=== PATIENT | male | born 1980 | race Caucasian/White ===

== ENCOUNTER 2019-12-26 18:35 | Observation (INO) ==
[2019-12-26] MEDS ORDERED: SODIUM CHLORIDE 0.9% 1000ML 1,000 ML IV SCH ×2 (19:00→22:21)
--- NOTE | 2019-12-26 19:04 | Emergency Department Note ---
History of Present Illness General Chief complaint: Chest Pain Stated complaint: CHEST PAIN Time Seen by Provider: 12/26/19 18:48 History of Present Illness This is a 39-year-old male presenting to the emergency department for evaluation of substernal chest pain for the past 1 to 2 hours. The patient is currently incarcerated and was in his cell when he began having chest pain. He was seated in his bunk, stood up, and felt lightheaded. The patient recalls waking up on the ground and believe that he struck his head. There is no blood or bleeding. He was able to sit back in his bunk where his symptoms continued. He contacted staff, who now bring him to the ER for evaluation. The patient is usually h ealthy without chronic medical disease. He does not take anything on a regular basis. He does continue with his discomfort that he rates a dull, heavy, 4/10. There is no strong family history of cardiopulmonary disease. Home Medications Home Medications Medication Instructions Recorded Confirmed Type No Known Home Medications 12/26/19 12/26/19 History Allergies Allergy/AdvReac Type Severity Reaction Status Date / Time No Known Allergies Allergy Unverified 12/26/19 20:37 Past Med/Surg History Medical History History of incarceration Social History Preferred Language: Armenian Communication Ability: Effective Beliefs That Will Affect Care: None Current Living Situation: Other Current Living Situation Comment: penitentiary Other Information That Helps Us Care for You: No Feels Safe at Home: Yes Smoking Status: Former smoker Tobacco Type: e-cigarettes ; Do You Dip or Chew Tobacco: No ; Hx Alcohol Use: No Hx Substance Use: No Review of Systems A total of 10 systems reviewed and were otherwise negative Physical Exam Vital Signs Vital Signs - 24 hr 12/26/19 19:34 12/26/19 19:40 12/26/19 19:50 Pulse Rate 66 67 67 Pulse Rate [Finger] Pulse Rate from SpO2 Sensor Respiratory Rate 12 12 19 Blood Pressure Blood Pressure [Right Arm] Blood Pressure Mean Blood Pressure Mean [Right Arm] Pulse Oximetry Oxygen Delivery Method Room Air Room Air Room Air 12/26/19 20:00 12/26/19 20:10 12/26/19 20:20 Pulse Rate 65 60 63 Pulse Rate [Finger] Pulse Rate from SpO2 Sensor Respiratory Rate 19 12 20 Blood Pressure Blood Pressure [Right Arm] Blood Pressure Mean Blood Pressure Mean [Right Arm] Pulse Oximetry Oxygen Delivery Method Room Air Room Air Room Air 12/26/19 20:30 12/26/19 20:40 12/26/19 20:42 Pulse Rate 67 67 75 Pulse Rate [Finger] Pulse Rate from SpO2 Sensor 70 Respiratory Rate 17 18 17 Blood Pressure 123/78 Blood Pressure [Right Arm] Blood Pressure Mean 83 Blood Pressure Mean [Right Arm] Pulse Oximetry 97 Oxygen Delivery Method Room Air Room Air Room Air 12/26/19 20:43 12/26/19 20:50 Pulse Rate 64 Pulse Rate [Finger] 70 Pulse Rate from SpO2 Sensor 66 Respiratory Rate 16 15 Blood Pressure Blood Pressure [Right Arm] 123/78 Blood Pressure Mean Blood Pressure Mean [Right Arm] 93 Pulse Oximetry 97 97 Oxygen Delivery Method Room Air Room Air VITALS: Vitals are noted on the nurse's note and reviewed by myself. Vital signs stable. GENERAL: Well-developed, well-nourished, white male, who is in no acute distress and resting comfortably. Patient is cooperative with the examination. HEAD: Normocephalic atraumatic. EARS: External ear normal. External auditory canals clear, tympanic membranes pearly tamayo without erythema or effusion bilaterally. EYES: Pupils equal round and reactive to light and accommodation. Conjunctivae without injection, sclerae without icterus. Extraocular movements intact. NOSE: Patent, turbinates without inflammation or discharge. MOUTH: Mucous membranes moist. Tonsils are not enlarged. Pharynx without erythema, blood, or exudate. Uvula midline. Airway patent. NECK: Supple without nuchal rigidity. No lymphadenopathy. No thyromegaly. Cervical spine is nontender. HEART: Regular rate and rhythm without murmurs gallops or rubs. LUNGS: Clear to auscultation bilaterally without wheezes, rales or rhonchi. No retractions or accessory muscle use. ABDOMEN: Positive normal bowel sounds x 4. Soft, nontender, without masses or organomegaly. No guarding or rebound tenderness. MUSCULOSKELETAL: No muscle atrophy, erythema, or edema noted. Full range of motion in all extremities. No tenderness to palpation. Normal gait. Strength 5/5 throughout. NEURO: Patient was alert and oriented to person place and time. CN II through XII grossly intact. No focal neurological deficits. Deep tendon reflexes 2+ throughout. SKIN: The skin was without rashes, erythema, edema, or bruising. Capillary refill less than 2 seconds. Course Administered Medications Acetaminophen (Tylenol) 650 mg PO Q4H PRN PRN Reason: Pain or Fever Stop: 01/25/20 22:20 Last Admin: 12/27/19 11:57 Dose: 650 mg Documented by: [id number] Admin: 12/27/19 03:45 Dose: 650 mg Documented by: [id number] Aspirin (Ecotrin Ectab) 81 mg PO QAM [facility] Stop: 01/26/20 08:59 Last Admin: 12/27/19 08:09 Dose: 81 mg Documented by: [id number] Discontinued Medications Gabapentin (Neurontin) 200 mg PO NOW STA Stop: 12/27/19 03:55 Last Admin: 12/27/19 04:43 Dose: 200 mg Documented by: [id number] Sodium Chloride (Nss 1000ml) 1,000 mls @ 999 mls/hr IV .[id number] [facility] Stop: 12/26/19 20:00 Last Infusion: 12/26/19 20:29 Dose: 0 mls/hr Documented by: [id number] Admin: 12/26/19 19:06 Dose: 999 mls/hr Documented by: [id number] Sodium Chloride (Nss 1000ml) 1,000 mls @ 80 mls/hr IV .[id number] [facility] Stop: 12/27/19 09:00 Last Infusion: 12/27/19 10:14 Dose: 0 mls/hr Documented by: [id number] Admin: 12/26/19 22:49 Dose: 80 mls/hr Documented by: [id number] Nitroglycerin (Nitro-Bid 2%) 1 inch EXT NOW ONE Stop: 12/26/19 20:25 Last Admin: 12/26/19 20:41 Dose: 1 inch Documented by: [id number] Perflutren Lipid Microsphere (Definity) 2 ml IV ONCE ONE Stop: 12/27/19 13:52 Last Admin: 12/27/19 13:52 Dose: 2 ml Documented by: [id number] Medical Decision Making Differential Diagnosis Differential diagnosis includes, but is not limited to: Myocardial infarction, dysrhythmia, pericarditis, pneumothorax, aortic aneurysm/dissection, DVT/PE, anxiety, GERD, PUD, electrolyte imbalance, thyroid disorder, pneumonia, bronchitis, pancreatitis, and others Laboratory Data Result diagrams: 12/27/19 05:59 12/27/19 05:59 Lab Results 12/26/19 12/26/19 12/26/19 Range/Units 18:44 18:44 18:44 WBC 7.17 (4.8-10.8) K/uL RBC 5.10 (4.7-6.1) M/uL Hgb 15.8 (14.0-18.0) g/dL Hct 44.4 (42-52) % MCV 87.1 (80-100) fL MCH 31.0 (25-34) pg MCHC 35.6 (32-36) g/dL RDW Std Deviation 42.4 (36.4-46.3) fL RDW Coeff of Abner 13.4 (11.5-14.5) % Plt Count 198 (130-400) K/uL MPV 11.8 H (7.4-10.4) fL Immature Gran % (Auto) 0.1 % Neut % (Auto) 69.7 % Lymph % (Auto) 20.1 % Erath % (Auto) 8.4 % Eos % (Auto) 1.3 % Baso % (Auto) 0.4 % Immature Gran # (Auto) 0.01 (0.00-0.02) K/uL Neut # (Auto) 5.00 (1.4-6.5) K/uL Lymph # (Auto) 1.44 (1.2-3.4) K/uL Erath # (Auto) 0.60 H (0.11-0.59) K/uL Eos # (Auto) 0.09 (0-0.5) K/uL Baso # (Auto) 0.03 (0-0.2) K/uL PT 10.4 (9.0-12.0) Seconds INR 1.0 (0.9-1.1) APTT 25.7 (21.0-31.0) Seconds PTT Ratio 0.9 D-Dimer < 190 (0-500) ug/L FEU Sodium 141 (136-145) mmol/L Potassium 3.8 (3.5-5.1) mmol/L Chloride 110 H (98-107) mmol/L Carbon Dioxide 24 (21-32) mmol/L Anion Gap 8.0 (3-11) BUN 12 (7-18) mg/dl Creatinine 0.94 (0.6-1.4) mg/dl Est Cr Clr Drug Dosing 129.0 ml/min Est GFR ( Amer) 117.9 Est GFR (Non-Af Amer) 101.7 BUN/Creatinine Ratio 12.2 (10-20) Glucose 119 H (70-99) mg/dl Calcium 9.3 (8.5-10.1) mg/dl Magnesium 1.9 (1.8-2.4) mg/dl Total Bilirubin 0.4 (0.2-1) mg/dl AST 12 L (15-37) U/L ALT 36 (12-78) U/L Alkaline Phosphatase 81 (45-117) U/L Troponin I 0.027 (0-0.045) ng/ml Total Protein 7.2 (6.4-8.2) gm/dl Albumin 3.6 (3.4-5.0) gm/dl Globulin 3.6 (2.5-4.0) gm/dl Albumin/Globulin Ratio 1.0 (0.9-2) Lipase 88 (73-393) U/L TSH 1.070 (0.300-4.500) uIu/ml Lyme Disease IgG Ab (Negative) Lyme Disease IgM Ab (Negative) 12/26/19 Range/Units 18:44 WBC (4.8-10.8) K/uL RBC (4.7-6.1) M/uL Hgb (14.0-18.0) g/dL Hct (42-52) % MCV (80-100) fL MCH (25-34) pg MCHC (32-36) g/dL RDW Std Deviation (36.4-46.3) fL RDW Coeff of Abner (11.5-14.5) % Plt Count (130-400) K/uL MPV (7.4-10.4) fL Immature Gran % (Auto) % Neut % (Auto) % Lymph % (Auto) % Erath % (Auto) % Eos % (Auto) % Baso % (Auto) % Immature Gran # (Auto) (0.00-0.02) K/uL Neut # (Auto) (1.4-6.5) K/uL Lymph # (Auto) (1.2-3.4) K/uL Erath # (Auto) (0.11-0.59) K/uL Eos # (Auto) (0-0.5) K/uL Baso # (Auto) (0-0.2) K/uL PT (9.0-12.0) Seconds INR (0.9-1.1) APTT (21.0-31.0) Seconds PTT Ratio D-Dimer (0-500) ug/L FEU Sodium (136-145) mmol/L Potassium (3.5-5.1) mmol/L Chloride (98-107) mmol/L Carbon Dioxide (21-32) mmol/L Anion Gap (3-11) BUN (7-18) mg/dl Creatinine (0.6-1.4) mg/dl Est Cr Clr Drug Dosing ml/min Est GFR ( Amer) Est GFR (Non-Af Amer) BUN/Creatinine Ratio (10-20) Glucose (70-99) mg/dl Calcium (8.5-10.1) mg/dl Magnesium (1.8-2.4) mg/dl Total Bilirubin (0.2-1) mg/dl AST (15-37) U/L ALT (12-78) U/L Alkaline Phosphatase (45-117) U/L Troponin I (0-0.045) ng/ml Total Protein (6.4-8.2) gm/dl Albumin (3.4-5.0) gm/dl Globulin (2.5-4.0) gm/dl Albumin/Globulin Ratio (0.9-2) Lipase (73-393) U/L TSH (0.300-4.500) uIu/ml Lyme Disease IgG Ab Negative (Negative) Lyme Disease IgM Ab Negative (Negative) Imaging Data Radiologist's Impression: XR chest 2V PA/lateral CLINICAL HISTORY: Chest pain. Syncope. COMPARISON STUDY: No previous studies for comparison. FINDINGS: Lung volumes are normal. Lungs are clear. There is no pneumothorax or pleural effusion. Cardiac size is normal. Mediastinal contours are normal. There is no evidence for pulmonary edema. IMPRESSION: No acute cardiopulmonary findings. CT OF THE HEAD WITHOUT CONTRAST CLINICAL HISTORY: syncope COMPARISON STUDY: No previous studies for comparison. CT DOSE: 638.56 mGycm TECHNIQUE: Helical axial images of the head were obtained without IV contrast. Automated exposure control was utilized for the study. A dose lowering technique was utilized adhering to the principles of ALARA. FINDINGS: No acute intracranial hemorrhage, midline shift or mass effect is present. The ventricular system is unremarkable. The basilar cisterns are patent. No extra-axial collections are present. There are no findings to suggest acute dural sinus thrombosis or acute territorial infarct. No significant calvarial abnormalities are present. Visualized portions of the sinuses and mastoid air cells are clear. IMPRESSION: No acute intracranial findings ECG Data Attestation: I personally reviewed and interpreted this ECG as follows: Indication: chest pain and syncope Additional Comments: EKG #1: Sinus rhythm with occasional Premature ventricular complexes@80 bpm QT Int : 364 ms possible prior posterior MS Abnormal ECG No previous ECGs available EKG#2: Normal sinus rhythm @68 bpm QT Int : 412 ms possible posterior MS Nonspecific ST abnormality Abnormal ECG When compared with ECG of 26-DEC-2019 18:44 Premature ventricular complexes are no longer Present MDM Narrative physical exam and history were performed. Nursing notes, EMR, and Medication List were personally reviewed. Patient appears to have had a syncopal episode prior to arrival. He does have chest pain as well. IV access was established and labs were obtained. EKG was performed and does show sinus rhythm with PVCs, however it may also represent a possible posterior MS. The case was discussed with my attending, Dr. Choe, who remained involved in care and decision-making. The patient has received aspirin prehospital, but was initially hypotensive for EMS and was not given Nitropaste or nitroglycerin. CT scan of the head was performed as well as chest x-ray. He was placed on the teletypesetter monitor. The patient blood work is as above and was reviewed. He does not have a significantly elevated white blood cell count, gross anemia, bandemia, or signif icant electrolyte imbalance. Lipase and transaminases are not diagnostic. TSH shows euthyroid state. Urine is without evidence of infection. Lyme is negative. D-dimer x1 is negative. Troponin x2 are both technically negative, however he does have a detectable troponin of 0.027. I am unable to determine if this is trending upwards or stable for the patient. CT scan of the head and chest x-ray were reviewed by myself and radiology showing no acute process. The patient remained in normal sinus rhythm with occasional PVCs with a rate in the 70s on the teletypesetter monitor. On reevaluation he continues to have chest pain. His vital signs appear normal, and his pressure is roughly 130/80. Because of this Nitropaste was applied, which may have minimally improved his symptoms. Overall the patient does not appear stable for discharge home. He has an atypical EKG with a detectable troponin. Additionally he has a syncopal episode. The case was discussed with the on-call hospitalist team who agreed to evaluate the patient here in the ER. Please see their dictation for further patient course, plan, disposition. The chart was completed utilizing [employer] Speech Voice Recognition Software. Grammatical errors, random word insertions, pronoun errors, and incomplete sentences are an occasional consequence of this system due to software limitations, ambient noise, and hardware issues. Any formal questions or concerns about the content, text, or information contained within the body of this dictation should be directly addressed to the provider for clarification. . Impression & Plan Syncope and collapse, Head injury, Left-sided chest pain Discharge Plan Visit Data *Final* Discharge Date/Time: 12/26/19 21:56 Chief Complaint: Chest Pain Stated Complaint: CHEST PAIN ED Provider: Jackson Choe ED Midlevel Provider: Ash Dee Discharge Problem: Syncope and collapse, Head injury, Left-sided chest pain Patient Disposition: Admitted As Inpatient Discharge Instructions Interventions: ED Discharge Assessment Last Done: 12/26/19 21:56 Discharge Problem: Head injury Qualifiers: Encounter type: initial encounter Qualified Code(s): S09.90XA - Unspecified injury of head, initial encounter
[2019-12-26 19:25] LABS: Basophils # (auto) 0.03 K/uL (0-0.2); Basophils % (auto) 0.4 %; Eosinophils # (auto) 0.09 K/uL (0-0.5); Eosinophils % (auto) 1.3 %; Hematocrit (blood only) 44.4 % (42-52); Hemoglobin 15.8 g/dL (14.0-18.0); Immature Granulocytes # (auto) 0.01 K/uL (0.00-0.02); Immature Granulocytes % (auto) 0.1 %; Lymphocytes # (auto) 1.44 K/uL (1.2-3.4); Lymphocytes % (auto) 20.1 %; Mean Corpuscular Hgb Conc 35.6 g/dL (32-36); Mean Corpuscular Volume 87.1 fL (80-100); Mean Platelet Volume 11.8 fL (7.4-10.4); Monocytes % (auto) 8.4 %; Neutrophils % (auto) 69.7 %; Platelet Count 198 K/uL (130-400); RDW Coefficient of Variation 13.4 % (11.5-14.5); RDW Standard Deviation 42.4 fL (36.4-46.3); White Blood Count 7.17 K/uL (4.8-10.8)
--- NOTE | 2019-12-26 19:26 | CT Scan Report ---
CT OF THE HEAD WITHOUT CONTRAST CLINICAL HISTORY: syncope COMPARISON STUDY: No previous studies for comparison. CT DOSE: 638.56 mGycm TECHNIQUE: Helical axial images of the head were obtained without IV contrast. Automated exposure con trol was utilized for the study. A dose lowering technique was utilized adhering to the principles o f ALARA. FINDINGS: No acute intracranial hemorrhage, midline shift or mass effect is present. The ventricular system is unremarkable. The basilar cisterns are patent. No extra-axial collections are present. Ther e are no findings to suggest acute dural sinus thrombosis or acute territorial infarct. No significan t calvarial abnormalities are present. Visualized portions of the sinuses and mastoid air cells are c lear. IMPRESSION: No acute intracranial findings. ACT 112: Negative or not required by law. Electronically signed by: Domenico Stanley M.D. 12/26/2019 7:25 PM
[2019-12-26 19:35] LABS: Albumin Level 3.6 gm/dl (3.4-5.0); BUN Creatinine Ratio 12.2 (10-20); Calcium 9.3 mg/dl (8.5-10.1); Est GFR (African American) 117.9; Est GFR (Non-African American) 101.7; Magnesium 1.9 mg/dl (1.8-2.4); Potassium 3.8 mmol/L (3.5-5.1)
[2019-12-26 19:37] LABS: D Dimer < 190 ug/L FEU (0-500); Partial Thromboplastin Ratio 0.9; Partial Thromboplastin Time 25.7 Seconds (21.0-31.0); Prothrombin Time 10.4 Seconds (9.0-12.0)
--- NOTE | 2019-12-26 19:44 | XRay Report ---
XR chest 2V PA/lateral CLINICAL HISTORY: Chest pain. Syncope. COMPARISON STUDY: No previous studies for comparison. FINDINGS: Lung volumes are normal. Lungs are clear. There is no pneumothorax or pleural effusion. Car diac size is normal. Mediastinal contours are normal. There is no evidence for pulmonary edema. IMPRESSION: No acute cardiopulmonary findings. ACT 112: Negative or not required by law. Electronically signed by: Domenico Stanley M.D. 12/26/2019 7:43 PM
[2019-12-26 19:46] LABS: Bilirubin,Total 0.4 mg/dl (0.2-1); Globulin 3.6 gm/dl (2.5-4.0); Thyroid Stimulating Hormone 1.07 uIu/ml (0.300-4.500); Total Protein 7.2 gm/dl (6.4-8.2); Troponin I 0.027 ng/ml (0-0.045)
[2019-12-26 20:13] LABS: Lyme Ab IgG w/WB Rflx Negative (Negative); Lyme Ab IgM w/WB Rflx Negative (Negative)
[2019-12-26] MEDS ORDERED: NITROGLYCERIN 2% OINTMENT 30GM TUBE EXT ONE (20:24)
[2019-12-26 21:08] LABS: Appearance Urine Clear (Clear); Bilirubin Urine Negative (Negative); Blood Urine Negative (Negative); Color Urine Yellow; Glucose Urine UA Negative (Negative); Ketones Urine Negative (Negative); Leukocyte Esterase Urine Negative (Negative); Nitrite Urine Negative (Negative); Protein Urine Negative (Negative); Specific Gravity Urine 1.015 (1.000-1.030); Urobilinogen Urine Negative (Negative); pH Urine 5.5 (4.5-7.5)
[2019-12-26] MEDS ORDERED: NITROGLYCERIN SL 0.4 MG/TAB TAB SL PRN (22:21)
--- NOTE | 2019-12-26 22:56 | History and Physical Report ---
DATE OF ADMISSION: 12/26/2019 CHIEF COMPLAINT: Chest pain and syncope. HISTORY OF PRESENT ILLNESS: This is a 39-year-old male with no significant past medical history presents with chest pain and syncope.Around 4-5 p.m., was sitting on his bunk, when he has had a chest pain in the retrosternal region, 8/10 in severity, some pressure like feeling, no radiation, no sweating, no shortness of breath, when he tried to get off the bunk, he passed out for a couple of seconds and after that felt very dizzy. Right now also he has some dizziness when he came to the ER, still has some mild chest discomfort. ER is placing him on nitro paste. His initial EKG, no acute findings. Troponin is 0.027. Hemodynamics are stable. When the EMS came, his blood pressure was on the lower side, but right now his blood pressure is okay. Denies any fever, chills, no cough, no headache, yesterday had some blurred visions,but vision is okay now. No earache, no runny nose, no sore throat. Appetite has been not good for last 2 days. No abdominal pain. Normal bowel and bladder movements. No blood in the stools or black stools. No hematuria or burning micturition, no swelling in the legs, no rash. Otherwise, before this episode he has never had a similar kind of episode in the past and he generally ambulates well without any issues. No family history of heart disease. Stopped smoking last May of 2019 before that smoked 1 pack a day for about 10 years. Denies any alcohol abuse in the past, prior to assisted he used to do pain pills . ALLERGIES: No known drug allergies. PAST MEDICAL HISTORY: As mentioned above. PAST SURGICAL HISTORY: None. MEDICATIONS: None. FAMILY HISTORY: Denies any family history. SOCIAL HISTORY: Smokes 1 pack a day for about 10 years. Not smoking since last May of 2019. Denies any alcohol use. He used to do pain meds before he was in assisted. REVIEW OF SYMPTOMS: As per HPI. Rest of review of symptoms negative. PHYSICAL EXAMINATION: GENERAL: The patient is of moderate build, not in acute distress. VITAL SIGNS: Temperature 36.9, pulse 70, respiratory rate 16, blood pressure 123/78, oxygen 97% room air. HEENT: No pallor, no icterus. Pupils equal, round, reactive to light. NECK: No JVD, no neck mass, no carotid bruit. CARDIOVASCULAR: S1, S2 heard, regular rate and rhythm, no murmur, no gallop. RESPIRATORY SYSTEM: Normal AP diameter. No accessory muscle use. No wheezing, no crackles. ABDOMEN: Soft, bowel sounds present, nontender. No distention. CENTRAL NERVOUS SYSTEM: Cranial nerves II-XII grossly intact, nonfocal. EXTREMITIES: No edema, no erythema. LABORATORY DATA: WBC 7.1, hemoglobin 14.8, hematocrit 44.4, platelets 198. PT 10.4, INR 1, APTT 25.7. Sodium 141, potassium 3.8, chloride 110, bicarbonate 24, BUN 12, creatinine 0.9, serum glucose 119, calcium 9.3, magnesium 1.9, total bilirubin 0.4, AST 12, ALT 36, alkaline phosphatase 81. Troponin I 0.027, lipase 88. TSH 1.07. Lyme screen negative. IMAGING: Chest x-ray: No acute cardiopulmonary findings. CT of the head, no acute intracranial findings. EKG: Shows normal sinus rhythm, rate of 68, Q-waves in inferior leads. ASSESSMENT AND PLAN: This is a 39-year-old male who presents with chest pain and syncope. 1. Chest pain, syncope: Initial workup is unremarkable. We will follow the serial cardiac enzymes, echocardiogram. Monitor on tele floor. N.p.o. after midnight. Cardiac consult in a.m. for further recommendations. We will also check orthostatics. D-dimer was negative. 2. Deep venous thrombosis: Sequential compression devices. DISPOSITION: Observation in tele floor. Expect to discharge back to assisted whenever patient is stable. 3101, full code. MTDD
[2019-12-27] MEDS: ACETAMINOPHEN 325 MG TAB PO PRN ×2 (03:45→11:57)
[2019-12-27] MEDS ORDERED: GABAPENTIN 100 MG CAP PO STA ×2 (03:54→23:23)
[2019-12-27 06:25] LABS: Basophils # (auto) 0.02 K/uL (0-0.2); Basophils % (auto) 0.3 %; Eosinophils # (auto) 0.18 K/uL (0-0.5); Eosinophils % (auto) 2.8 %; Hematocrit (blood only) 39.5 % (42-52); Hemoglobin 13.8 g/dL (14.0-18.0); Immature Granulocytes # (auto) 0.01 K/uL (0.00-0.02); Immature Granulocytes % (auto) 0.2 %; Lymphocytes # (auto) 2.48 K/uL (1.2-3.4); Lymphocytes % (auto) 38.5 %; Mean Corpuscular Hemoglobin 30.7 pg (25-34); Mean Corpuscular Hgb Conc 34.9 g/dL (32-36); Mean Platelet Volume 11.6 fL (7.4-10.4); Monocytes # (auto) 0.51 K/uL (0.11-0.59); Monocytes % (auto) 7.9 %; Neutrophils # (auto) 3.24 K/uL (1.4-6.5); Neutrophils % (auto) 50.3 %; Platelet Count 176 K/uL (130-400); RDW Coefficient of Variation 13.7 % (11.5-14.5); RDW Standard Deviation 44.2 fL (36.4-46.3); Red Blood Count 4.49 M/uL (4.7-6.1); White Blood Count 6.44 K/uL (4.8-10.8)
[2019-12-27 06:56] LABS: BUN Creatinine Ratio 11.4 (10-20); Calcium 8.8 mg/dl (8.5-10.1); Est GFR (African American) 129.1; Est GFR (Non-African American) 111.4; Potassium 3.5 mmol/L (3.5-5.1)
[2019-12-27] MEDS: ASPIRIN 81 MG ECTAB PO SCH (08:09)
[2019-12-27] MEDS ORDERED: PERFLUTREN LIPID MICROSPHERE (DEFINITY) IV ONE (13:51)
--- NOTE | 2019-12-27 14:36 | Electrocardiogram Report ---
Test Reason : Blood Pressure : / mmHG Vent. Rate : 080 BPM Atrial Rate : 080 BPM P-R Int : 186 ms QRS Dur : 084 ms QT Int : 364 ms P-R-T Axes : 040 -17 018 degrees QTc Int : 419 ms Sinus rhythm with occasional Premature ventricular complexes possible prior posterior ME Abnormal ECG No previous ECGs available Confirmed by Hemanth Zamora ([id number]) on 12/27/2019 2:36:12 PM Referred By: Gil SCI Confirmed By:Ivan Zamora
--- NOTE | 2019-12-27 14:39 | Electrocardiogram Report ---
Test Reason : Blood Pressure : / mmHG Vent. Rate : 068 BPM Atrial Rate : 068 BPM P-R Int : 202 ms QRS Dur : 094 ms QT Int : 412 ms P-R-T Axes : 045 002 019 degrees QTc Int : 438 ms Normal sinus rhythm possible old posterior RI Nonspecific ST abnormality Abnormal ECG When compared with ECG of 26-DEC-2019 18:44, (unconfirmed) Premature ventricular complexes are no longer Present Confirmed by Hemanth Zamora ([id number]) on 12/27/2019 2:38:52 PM Referred By: Gil SCI Confirmed By:Ivan Zamora
--- NOTE | 2019-12-27 14:52 | Electrocardiogram Report ---
Test Reason : Blood Pressure : / mmHG Vent. Rate : 066 BPM Atrial Rate : 066 BPM P-R Int : 196 ms QRS Dur : 086 ms QT Int : 410 ms P-R-T Axes : 040 -17 011 degrees QTc Int : 429 ms Sinus rhythm with occasional Premature ventricular complexes Inferior infarct (cited on or before 26-DEC-2019) Abnormal ECG When compared with ECG of 26-DEC-2019 20:14, (unconfirmed) Premature ventricular complexes are now Present Confirmed by Hemanth Zamora ([id number]) on 12/27/2019 2:51:56 PM Referred By: Gil SCI Confirmed By:Ivan Zamora
--- NOTE | 2019-12-27 16:45 | Cardiology Consultation ---
Date of Consultation December 27, 2019 Assessment & Plan (1) Chest pain: Patient is a 39-year-old male without prior cardiac history and with minimal cardiac risk factors experienced an episode of precordial chest pain followed by possible syncopal spell on standing. Troponins negative for infarct or injury. EKGs notable for occasional ventricular ectopic beats. Echocardiogram at rest low normal LV function Stress echocardiography without stress-induced ischemia on the study of only jean r technical imaging quality. No chest pain at good workload no EKG changes No sign of ischemic heart disease to suggest cause for above symptoms. No abnormalities on telemetry. History of Present Illness Reason for Consultation: Chest pain, syncope Requesting Physician: Dr. Church Attending Physician: Ramez Church MD History of Present Illness Patient is a 39-year-old male currently incarcerated without prior history of cardiac disease or significant underlying medical issues. Patient does note he is being treated for restless leg syndrome with recent initiation of gabapentin Patient presents this admission noting having developed substernal chest pain while sitting in his bunk he stood up in sudden slips and transiently collapsed. Feels he lost consciousness for just a second. No nausea or diaphoresis no precursor symptoms. No prior history of cardiac disease exertional angina or chest pain. Is been relatively sedentary for the last months time no edema. Appetite is been only fair. He has been sleeping extremely poorly. No sensation of racing heart or palpitations. No fevers or unexplained infections. No bleeding difficulties. Allergies Allergy/AdvReac Type Severity Reaction Status Date / Time No Known Allergies Allergy Unverified 12/26/19 20:37 Home Medications Home Medications Medication Instructions Recorded Confirmed Type No Known Home Medications 12/26/19 12/26/19 History Patient History Medical History History of incarceration Social History Preferred Language: Nepali Communication Ability: Effective Beliefs That Will Affect Care: None Current Living Situation: Other Current Living Situation Comment: skilled nursing Other Information That Helps Us Care for You: No Feels Safe at Home: Yes Smoking Status: Former smoker Tobacco Type: e-cigarettes ; Do You Dip or Chew Tobacco: No ; Hx Alcohol Use: No Hx Substance Use: No Physical Exam Constitutional: WD/WN, vitals as above Eyes: PERRL, conjunctivae normal, anicteric sclerae ENMT: external ear and nose normal, oropharynx normal Neck: trachea midline, no thyromegaly Respiratory: normal respiratory effort, lungs clear to auscultation Cardiovascular: Rate/Rhythm: regular rate and regular rhythm Heart Sounds: normal S1 and normal S2; no gallop and no murmur Palpation: normal PMI Vessels: normal carotid upstroke and radial pulses present; no JVD and no caroti d bruit Extremities: no edema Gastrointestinal (Abdomen): normal bowel sounds, soft, nontender, no hepatosplenomegaly Musculoskeletal: no cyanosis or clubbing, extremities motor strength 5/5 Skin: no rashes, warm and dry Neurologic: PERRL, EOMI, accommodation nl, no face palsy, no dysarthria Psychiatric: A+Ox3, euthymic affect Results & Data ([facility]) Vital Signs (Past 12 Hours) Vital Signs Temp Pulse Pulse Resp BP Pulse Ox 12/27/19 15:50 36.7 C 69 18 110/66 96 12/27/19 11:33 36.6 C 67 18 107/61 94 12/27/19 08:00 71 12/27/19 07:58 36.5 C 63 18 97/62 L 94 Laboratory Results Laboratory Results - last 24 hr 12/26/19 12/26/19 12/26/19 18:44 18:44 18:44 WBC 7.17 RBC 5.10 Hgb 15.8 Hct 44.4 MCV 87.1 MCH 31.0 MCHC 35.6 RDW Std Deviation 42.4 RDW Coeff of Abner 13.4 Plt Count 198 MPV 11.8 H Immature Gran % (Auto) 0.1 Neut % (Auto) 69.7 Lymph % (Auto) 20.1 Isabella % (Auto) 8.4 Eos % (Auto) 1.3 Baso % (Auto) 0.4 Immature Gran # (Auto) 0.01 Neut # (Auto) 5.00 Lymph # (Auto) 1.44 Isabella # (Auto) 0.60 H Eos # (Auto) 0.09 Baso # (Auto) 0.03 PT 10.4 INR 1.0 APTT 25.7 PTT Ratio 0.9 D-Dimer < 190 Sodium 141 Potassium 3.8 Chloride 110 H Carbon Dioxide 24 Anion Gap 8.0 BUN 12 Creatinine 0.94 Est Cr Clr Drug Dosing 129.0 Est GFR ( Amer) 117.9 Est GFR (Non-Af Amer) 101.7 BUN/Creatinine Ratio 12.2 Glucose 119 H Calcium 9.3 Magnesium 1.9 Total Bilirubin 0.4 AST 12 L ALT 36 Alkaline Phosphatase 81 Troponin I 0.027 Total Protein 7.2 Albumin 3.6 Globulin 3.6 Albumin/Globulin Ratio 1.0 Lipase 88 TSH 1.070 Urine Color Urine Appearance Urine pH Ur Specific [place] Urine Protein Urine Glucose (UA) Urine Ketones Urine Blood Urine Nitrite Urine Bilirubin Urine Urobilinogen Ur Leukocyte Esterase Nasal Screen MRSA (PCR) Lyme Disease IgG Ab Lyme Disease IgM Ab 12/26/19 12/26/19 12/26/19 18:44 20:56 21:00 WBC RBC Hgb Hct MCV MCH MCHC RDW Std Deviation RDW Coeff of Abner Plt Count MPV Immature Gran % (Auto) Neut % (Auto) Lymph % (Auto) Isabella % (Auto) Eos % (Auto) Baso % (Auto) Immature Gran # (Auto) Neut # (Auto) Lymph # (Auto) Isabella # (Auto) Eos # (Auto) Baso # (Auto) PT INR APTT PTT Ratio D-Dimer Sodium Potassium Chloride Carbon Dioxide Anion Gap BUN Creatinine Est Cr Clr Drug Dosing Est GFR ( Amer) Est GFR (Non-Af Amer) BUN/Creatinine Ratio Glucose Calcium Magnesium Total Bilirubin AST ALT Alkaline Phosphatase Troponin I 0.020 Total Protein Albumin Globulin Albumin/Globulin Ratio Lipase TSH Urine Color Yellow Urine Appearance Clear Urine pH 5.5 Ur Specific [place] 1.015 Urine Protein Negative Urine Glucose (UA) Negative Urine Ketones Negative Urine Blood Negative Urine Nitrite Negative Urine Bilirubin Negative Urine Urobilinogen Negative Ur Leukocyte Esterase Negative Nasal Screen MRSA (PCR) Lyme Disease IgG Ab Negative Lyme Disease IgM Ab Negative 12/26/19 12/26/19 12/27/19 22:37 23:21 05:59 WBC 6.44 RBC 4.49 L Hgb 13.8 L Hct 39.5 L MCV 88.0 MCH 30.7 MCHC 34.9 RDW Std Deviation 44.2 RDW Coeff of Abner 13.7 Plt Count 176 MPV 11.6 H Immature Gran % (Auto) 0.2 Neut % (Auto) 50.3 Lymph % (Auto) 38.5 Isabella % (Auto) 7.9 Eos % (Auto) 2.8 Baso % (Auto) 0.3 Immature Gran # (Auto) 0.01 Neut # (Auto) 3.24 Lymph # (Auto) 2.48 Isabella # (Auto) 0.51 Eos # (Auto) 0.18 Baso # (Auto) 0.02 PT INR APTT PTT Ratio D-Dimer Sodium Potassium Chloride Carbon Dioxide Anion Gap BUN Creatinine Est Cr Clr Drug Dosing Est GFR ( Amer) Est GFR (Non-Af Amer) BUN/Creatinine Ratio Glucose Calcium Magnesium Total Bilirubin AST ALT Alkaline Phosphatase Troponin I 0.021 Total Protein Albumin Globulin Albumin/Globulin Ratio Lipase TSH Urine Color Urine Appearance Urine pH Ur Specific [place] Urine Protein Urine Glucose (UA) Urine Ketones Urine Blood Urine Nitrite Urine Bilirubin Urine Urobilinogen Ur Leukocyte Esterase Nasal Screen MRSA (PCR) Negative Lyme Disease IgG Ab Lyme Disease IgM Ab 12/27/19 12/27/19 12/27/19 05:59 05:59 11:40 WBC RBC Hgb Hct MCV MCH MCHC RDW Std Deviation RDW Coeff of Abner Plt Count MPV Immature Gran % (Auto) Neut % (Auto) Lymph % (Auto) Isabella % (Auto) Eos % (Auto) Baso % (Auto) Immature Gran # (Auto) Neut # (Auto) Lymph # (Auto) Isabella # (Auto) Eos # (Auto) Baso # (Auto) PT INR APTT PTT Ratio D-Dimer Sodium 144 Potassium 3.5 Chloride 113 H Carbon Dioxide 26 Anion Gap 5.0 BUN 9 Creatinine 0.82 Est Cr Clr Drug Dosing 146.0 Est GFR ( Amer) 129.1 Est GFR (Non-Af Amer) 111.4 BUN/Creatinine Ratio 11.4 Glucose 91 Calcium 8.8 Magnesium 2.0 Total Bilirubin AST ALT Alkaline Phosphatase Troponin I 0.028 0.024 Total Protein Albumin Globulin Albumin/Globulin Ratio Lipase TSH Urine Color Urine Appearance Urine pH Ur Specific [place] Urine Protein Urine Glucose (UA) Urine Ketones Urine Blood Urine Nitrite Urine Bilirubin Urine Urobilinogen Ur Leukocyte Esterase Nasal Screen MRSA (PCR) Lyme Disease IgG Ab Lyme Disease IgM Ab
--- NOTE | 2019-12-27 18:47 | Hospitalist Progress Note ---
Date of Service December 27, 2019 Assessment & Plan (1) Chest pain: 39-year-old admitted with chest pain and possible syncopal Initial EKG and troponins were unremarkable Appreciate cardiology input and recommended Status post negative dobutamine stress echo Denies any more symptoms in the telemetry Likely go home tomorrow Headache Likely secondary to use of night No associated symptoms Advised Tylenol DVT prophylaxis Subcu heparin Admission and Anticipated Discharge Date Admission Date: December 26, 2019 Subjective 12/27/2019 Patient was seen and examined in the telemetry unit He was admitted yesterday with chest pain No more pain during examination We will go for a stress echo this afternoon Review of Systems Review of Systems: All systems reviewed and are unremarkable except as noted below Physical Exam Physical Exam: Lying in bed comfortably Constitutional: well developed and well nourished; no acute distress and not ill appearing Eyes: PERRL, conjunctivae normal, anicteric sclerae ENMT: external ear and nose normal, oropharynx normal Neck: trachea midline, no thyromegaly Respiratory: normal respiratory effort Auscultation: lungs clear to auscultation bilaterally Cardiovascular: Rate/Rhythm: regular rate and regular rhythm Heart Sounds: no murmur Gastrointestinal (Abdomen): Inspection/Auscultation: abdomen normal to inspection and normal bowel sounds Percussion/Palpation: abdomen soft; abdomen nontender Musculoskeletal: No acute arthritis Neurologic: moves all extremities; no focal motor deficits Results & Data ([facility]) Vital Signs (Past 12 Hours) Vital Signs Temp Pulse Pulse Resp BP Pulse Ox 12/27/19 15:50 36.7 C 69 18 110/66 96 12/27/19 11:33 36.6 C 67 18 107/61 94 12/27/19 08:00 71 12/27/19 07:58 36.5 C 63 18 97/62 L 94 Laboratory Results Short CBC 12/26/19 12/27/19 Range/Units 18:44 05:59 WBC 7.17 6.44 (4.8-10.8) K/uL Hgb 15.8 13.8 L (14.0-18.0) g/dL Hct 44.4 39.5 L (42-52) % Plt Count 198 176 (130-400) K/uL BMP 12/26/19 12/27/19 18:44 05:59 Sodium 141 144 Potassium 3.8 3.5 Chloride 110 H 113 H Carbon Dioxide 24 26 BUN 12 9 Creatinine 0.94 0.82 Glucose 119 H 91 Calcium 9.3 8.8 Cardiac Enzymes 12/26/19 12/26/19 12/26/19 Range/Units 18:44 20:56 23:21 Troponin I 0.027 0.020 0.021 (0-0.045) ng/ml 12/27/19 12/27/19 Range/Units 05:59 11:40 Troponin I 0.028 0.024 (0-0.045) ng/ml Liver Function 12/26/19 Range/Units 18:44 Total Bilirubin 0.4 (0.2-1) mg/dl AST 12 L (15-37) U/L ALT 36 (12-78) U/L Alkaline Phosphatase 81 (45-117) U/L Albumin 3.6 (3.4-5.0) gm/dl Urine 12/26/19 Range/Units 21:00 Urine Color Yellow Urine Appearance Clear (Clear) Urine pH 5.5 (4.5-7.5) Ur Specific [place] 1.015 (1.000-1.030) Urine Protein Negative (Negative) Urine Glucose (UA) Negative (Negative) Medications Administered Current Inpatient Medications Acetaminophen (Tylenol) 650 mg PO Q4H PRN PRN Reason: Pain or Fever Stop: 01/25/20 22:20 Last Admin: 12/27/19 11:57 Dose: 650 mg Documented by: Aspirin (Ecotrin Ectab) 81 mg PO [facility] Stop: 01/26/20 08:59 Last Admin: 12/27/19 08:09 Dose: 81 mg Documented by: Nitroglycerin (Nitrostat) 0.4 mg SL UD PRN PRN Reason: Chest Pain Stop: 01/25/20 22:20
[2019-12-28 06:15] LABS: Basophils # (auto) 0.02 K/uL (0-0.2); Basophils % (auto) 0.3 %; Eosinophils # (auto) 0.26 K/uL (0-0.5); Eosinophils % (auto) 3.5 %; Hematocrit (blood only) 42.5 % (42-52); Hemoglobin 14.8 g/dL (14.0-18.0); Immature Granulocytes # (auto) 0.01 K/uL (0.00-0.02); Immature Granulocytes % (auto) 0.1 %; Lymphocytes # (auto) 2.93 K/uL (1.2-3.4); Lymphocytes % (auto) 39.4 %; Mean Corpuscular Hemoglobin 30.8 pg (25-34); Mean Corpuscular Hgb Conc 34.8 g/dL (32-36); Mean Corpuscular Volume 88.5 fL (80-100); Mean Platelet Volume 11.4 fL (7.4-10.4); Monocytes # (auto) 0.55 K/uL (0.11-0.59); Monocytes % (auto) 7.4 %; Neutrophils # (auto) 3.67 K/uL (1.4-6.5); Neutrophils % (auto) 49.3 %; Platelet Count 209 K/uL (130-400); RDW Coefficient of Variation 13.5 % (11.5-14.5); White Blood Count 7.44 K/uL (4.8-10.8)
[2019-12-28 06:44] LABS: BUN Creatinine Ratio 10.6 (10-20); Calcium 8.7 mg/dl (8.5-10.1); Creatinine Clr Calc Pharmacy 125.2 ml/min; Est GFR (African American) 116.4; Est GFR (Non-African American) 100.4; Magnesium 2.3 mg/dl (1.8-2.4); Potassium 3.4 mmol/L (3.5-5.1)
[2019-12-28] MEDS: ASPIRIN 81 MG ECTAB PO SCH (08:28)
[2019-12-28] MEDS ORDERED: POTASSIUM CHLORIDE 20 MEQ TABCR PO STA (08:43)
--- NOTE | 2019-12-28 10:19 | Hospitalist Progress Note ---
Date of Service December 28, 2019 Assessment & Plan (1) Chest pain: 39-year-old admitted with chest pain and possible syncopal Initial EKG and troponins were unremarkable Appreciate cardiology input and recommended Status post negative dobutamine stress echo Has had some chest pressure this morning without any other associated symptoms EKG remained unremarkable No more pain during my examination Will be discharged to [facility] this afternoon Headache Likely secondary to use of night No associated symptoms Advised Tylenol Headache resolved DVT prophylaxis Subcu heparin Admission and Anticipated Discharge Date Admission Date: December 26, 2019 Subjective 12/27/2019 Patient was seen and examined in the telemetry unit He was admitted yesterday with chest pain No more pain during examination We will go for a stress echo this afternoon 12/28/2019 The patient was seen and examined in telemetry unit He was admitted with chest pain Stress echo was negative for any ischemia He has had some chest pressure for a few seconds this morning without any EKG abnormality and the pain is gone Review of Systems Review of Systems: All systems reviewed and are unremarkable except as noted below Physical Exam Physical Exam: Lying in bed comfortably Constitutional: well developed and well nourished; no acute distress and not ill appearing Eyes: PERRL, conjunctivae normal, anicteric sclerae ENMT: external ear and nose normal, oropharynx normal Neck: trachea midline, no thyromegaly Respiratory: normal respiratory effort Auscultation: lungs clear to auscultation bilaterally Cardiovascular: Rate/Rhythm: regular rate and regular rhythm Heart Sounds: no murmur Gastrointestinal (Abdomen): Inspection/Auscultation: abdomen normal to inspection and normal bowel sounds Percussion/Palpation: abdomen soft; abdomen nontender Musculoskeletal: No acute pain involving any joints. Minimal tenderness in the costochondral junction Neurologic: moves all extremities; no focal motor deficits Results & Data ([facility]) Vital Signs (Past 12 Hours) Vital Signs Temp Pulse Pulse Resp BP Pulse Ox 12/28/19 07:22 36.6 C 18 95 12/28/19 04:14 36.7 C 64 18 107/67 95 12/28/19 00:00 69 12/27/19 23:17 36.9 C 72 18 98/75 L 92 Laboratory Results Short CBC 12/28/19 Range/Units 05:39 WBC 7.44 (4.8-10.8) K/uL Hgb 14.8 (14.0-18.0) g/dL Hct 42.5 (42-52) % Plt Count 209 (130-400) K/uL BMP 12/28/19 05:39 Sodium 142 Potassium 3.4 L Chloride 111 H Carbon Dioxide 28 BUN 10 Creatinine 0.95 Glucose 92 Calcium 8.7 Cardiac Enzymes 12/27/19 Range/Units 11:40 Troponin I 0.024 (0-0.045) ng/ml Medications Administered Current Inpatient Medications Acetaminophen (Tylenol) 650 mg PO Q4H PRN PRN Reason: Pain or Fever Stop: 01/25/20 22:20 Last Admin: 12/27/19 11:57 Dose: 650 mg Documented by: Aspirin (Ecotrin Ectab) 81 mg PO QAM [facility] Stop: 01/26/20 08:59 Last Admin: 12/28/19 08:28 Dose: 81 mg Documented by: Nitroglycerin (Nitrostat) 0.4 mg SL UD PRN PRN Reason: Chest Pain Stop: 01/25/20 22:20
--- NOTE | 2019-12-28 14:58 | Electrocardiogram Report ---
Test Reason : Blood Pressure : / mmHG Vent. Rate : 063 BPM Atrial Rate : 063 BPM P-R Int : 208 ms QRS Dur : 094 ms QT Int : 426 ms P-R-T Axes : 037 001 023 degrees QTc Int : 435 ms Normal sinus rhythm possible Inferior-posterior infarct (cited on or before 27-DEC-2019) Abnormal ECG When compared with ECG of 27-DEC-2019 06:55, Premature ventricular complexes are no longer Present Confirmed by Hemanth Zamora ([id number]) on 12/28/2019 2:57:55 PM Referred By: Gil SCI Confirmed By:Ivan Zamora
--- NOTE | 2019-12-28 18:31 | Discharge Summary ---
Date of Service December 28, 2019 Admission HPI Per Admitting Provider DICTATED BY: Deshaun Hernandez MD DATE OF ADMISSION: 12/26/2019 CHIEF COMPLAINT: Chest pain and syncope. HISTORY OF PRESENT ILLNESS: This is a 39-year-old male with no significant past medical history presents with chest pain and syncope.Around 4-5 p.m., was sitting on his bunk, when he has had a chest pain in the retrosternal region, 8/10 in severity, some pressure like feeling, no radiation, no sweating, no shortness of breath, when he tried to get off the bunk, he passed out for a couple of seconds and after that felt very dizzy. Right now also he has some dizziness when he came to the ER, still has some mild chest discomfort. ER is placing him on nitro paste. His initial EKG, no acute findings. Troponin is 0.027. Hemodynamics are stable. When the EMS came, his blood pressure was on the lower side, but right now his blood pressure is okay. Denies any fever, chills, no cough, no headache, yesterday had some blurred visions,but vision is okay now. No earache, no runny nose, no sore throat. Appetite has been not good for last 2 days. No abdominal pain. Normal bowel and bladder movements. No blood in the stools or black stools. No hematuria or burning micturition, no swelling in the legs, no rash. Otherwise, before this episode he has never had a similar kind of episode in the past and he generally ambulates well without any issues. No family history of heart disease. Stopped smoking last May of 2019 before that smoked 1 pack a day for about 10 years. Denies any alcohol abuse in the past, prior to [facility] he used to do pain pills . Admission Exam Per Admitting Provider GENERAL: The patient is of moderate build, not in acute distress. VITAL SIGNS: Temperature 36.9, pulse 70, respiratory rate 16, blood pressure 123/78, oxygen 97% room air. HEENT: No pallor, no icterus. Pupils equal, round, reactive to light. NECK: No JVD, no neck mass, no carotid bruit. CARDIOVASCULAR: S1, S2 heard, regular rate and rhythm, no murmur, no gallop. RESPIRATORY SYSTEM: Normal AP diameter. No accessory muscle use. No wheezing, no crackles. ABDOMEN: Soft, bowel sounds present, nontender. No distention. CENTRAL NERVOUS SYSTEM: Cranial nerves II-XII grossly intact, nonfocal. EXTREMITIES: No edema, no erythema. Principal Diagnosis Chest pain no ACS, negative exercise stress echo Discharge Exam Constitutional well developed and well nourished; no acute distress and not ill appearing Eyes PERRL, conjunctivae normal, anicteric sclerae ENMT external ear and nose normal, oropharynx normal Neck trachea midline, no thyromegaly Respiratory normal respiratory effort Auscultation: lungs clear to auscultation bilaterally Cardiovascular Rate/Rhythm: regular rate and regular rhythm Heart Sounds: no murmur Gastrointestinal (Abdomen) Inspection/Auscultation: abdomen normal to inspection and normal bowel sounds Percussion/Palpation: abdomen soft; abdomen nontender Neurologic moves all extremities; no focal motor deficits Discharge Data Allergies Allergy/AdvReac Type Severity Reaction Status Date / Time No Known Allergies Allergy Unverified 12/26/19 20:37 Consultations 12/26/19 20:31 ED Decision to Admit Stat 12/27/19 08:00 Consult Cardiology Routine Ordered Studies 12/26/19 18:59 CT head/brain wo con Stat Hospital Course (1) Chest pain: 39-year-old admitted with chest pain and possible syncopal Initial EKG and troponins were unremarkable Appreciate cardiology input and recommended Status post negative dobutamine stress echo Has had some chest pressure this morning without any other associated symptoms EKG remained unremarkable No more pain during my examination Will be discharged to [facility] this afternoon Headache Likely secondary to use of night No associated symptoms Advised Tylenol Headache resolved DVT prophylaxis Subcu heparin Total Time Total Time Spent Total Time Spent (In Minutes): 35 minutes Total Time Includes: Examination of the Patient, Discharge Planning, Medication Reconciliation and Communication With Other Providers Discharge Plan Discharge Items [facility] Reason For Visit: CHEST PAIN, SYNCOPE Discharge Diagnosis: Chest pain no ACS, negative exercise stress echo Condition on Discharge: Good Activity: Resume your previous activity Non-emergency contact: Primary Care Provider Call non-emergency contact if: you have any medication questions and your symptoms worsen Follow-up/Referrals: Gil HOLMAN [Primary Care Provider] - Diet: Heart Healthy Addtl Attending Provider Instructions: No new medications Pending Studies at Discharge: No Stand-Alone Forms: My [facility] Skilled Items Patient informed of condition?: Yes DNR: No Discharge Level of Care: Other Communicable Disease: No Discharge Prognosis: Stable Lines: None Urinary Catheter: No Medications and DC Order Prescriptions: New gabapentin 100 mg capsule 100 mg PO BID PRN (Reason: Lestless leg) Qty: 30 RF: 0 No Action No Known Home Medications RF: 0 Admission Data Admit Date/Time: 12/26/19 20:51 Attending Provider: Ramez Church Admit Provider: Deshaun Hernandez Primary Care Provider: Gil HOLMAN Other Providers: Cheko Flores ; Ash Murrell ; Sherif Morrison ; Navarro Coy ; Owen Parsons ; Sergo Freeman ; [place] ; Avril Thomason ; Ganga Bhatia ; Deshaun Hernandez Other Interventions: Discharge Summary Assessment (RN) Last Done: 12/28/19 11:08 DC Date/Time DO NOT enter until pt leaves facility: 12/28/19 13:05
--- NOTE | 2019-12-30 18:22 | Electrocardiogram Report ---
Test Reason : Blood Pressure : / mmHG Vent. Rate : 064 BPM Atrial Rate : 064 BPM P-R Int : 214 ms QRS Dur : 094 ms QT Int : 416 ms P-R-T Axes : 035 002 008 degrees QTc Int : 429 ms Sinus rhythm with 1st degree A-V block Incomplete right bundle branch block possible Inferior infarct (cited on or before 27-DEC-2019) Abnormal ECG When compared with ECG of 28-DEC-2019 06:42, No significant change was found Confirmed by Hemanth Zamora ([id number]) on 12/30/2019 6:22:49 PM Referred By: Gil SCI Confirmed By:Ivan Zamora
== END 2019-12-28 13:05 ==
LOC: 2E 18:35 → ED 18:35 → 2E 21:56